=== PATIENT | female | born 1950 | race African-American/Black ===

== ENCOUNTER → 2016-11-01 | Day surgery (SDC) | payer OTHER ==
[~2016-11-01] MED LIST: ALBUTEROL17 GM INH; ANASTROZOLE1 GM MC; ANASTROZOLE1 MG PO; ARIMIDEX1 MG PO; ATENOLOL50 MG PO; ATORVASTATIN CA10 MG PO; AUGMENTIN875 M1 PO; BENADRYL25 M1 PO; DIFLUCAN100 MG PO; DILTIAZEM 24HR120 M1 PO; DILTIAZEM 24HR120 MG; EC-NAPROSYN500 MG PO; FLEXERIL10 MG PO; HCTZ; LIPITOR; LIPITOR PO; LISINOPRIL-HCTZ1 T15 PO; LISINOPRIL-HCTZ1 T18 PO; METFORMIN HCL1000 M1 PO; METFORMIN PO; NORVASC; OMEPRAZOLE20 M1 PO; PEPCID AC20 M2 PO; PERCOCET 5-3251 TAB PO; PREDNISONE1 MG PO; PRILOSEC20 MG PO; PRINIVIL10 MG PO; ROBITUSSIN A-C S5 ML PO; ROBITUSSIN A-C10 ML PO; TENORMIN50 MG PO; TOPROL XL 50 MG50 M1 PO; TOPROL XL 50 MG50 MG PO; ZESTORETIC 20-1 EAC2 PO; ZITHROMAX PO; ZITHROMAX1 G/PKT PO; [UNRECOGNIZED DRUG - REMARK]
--- NOTE | ~2016-11-01 | OR ---
Unit #: [id number] #: [id number] Patient: HUSSAIN QUINTANA [id number] [address] [address] [id number] O MR#: [id number] NAME: HUSSAIN QUINTANA. ROOM: Date of Procedure: 11/01/2016 Admission Date: 11/01/2016 Surgeon: Fuad Valero M.D. : 1950 Attending Physician: Fuad Valero M.D. Primary Care Physician: Tomasa Maxwell A.P.R.N. OPERATIVE REPORT PROCEDURE PERFORMED Colonoscopy with snare polypectomy. INDICATIONS FOR PROCEDURE A 66-year-old female, average risk for colorectal cancer. MEDICATIONS Monitored anesthesia. POSTOPERATIVE FINDINGS 1. Polyp, 5 mm, sigmoid colon snared and sent for histopathology. 2. Rest of the colon exam to cecum was normal. 3. Prep was good. 4. Internal hemorrhoids. PLAN Follow up on the pathology report. Repeat colonoscopy in 5 years. DESCRIPTION OF PROCEDURE The patient was explained of the procedure, risks, and benefits along with risks and benefits of anesthesia. She was brought to the endoscopy room. Propofol anesthesia was given. Rectal exam was done, which was normal. Colonoscope was lubricated, passed up the rectum, advanced under direct vision all the way to the cecum. Cecum was identified by ileocecal valve and appendiceal orifice. Polyp seen in sigmoid colon was snared and sent for histopathology. Rest of the exam was normal. I retroflexed in the rectum, internal hemorrhoids noted. Gently, the scope was pulled out. She tolerated the procedure well. No major complications were seen. Dictated by... Zara Nobles/nurys TD: 11/01/2016 15:35 JOB #: [id number] CC: Tomasa Maxwell A.P.R.N. Unit #: [id number] #: [id number] Patient: HUSSAIN QUINTANA OPERATIVE REPORT Page 1 of 1 X Fuad Valero MD PROCEDURE OPERATIVE NOTE
== END | disposition home or self-care (01) ==
LOC: COPS 09:17
DX: Z12.11 Encounter for screening for malignant neoplasm of colon (principal); K63.5 Polyp of colon; K64.8 Other hemorrhoids; I10 Essential (primary) hypertension; E11.9 Type 2 diabetes mellitus without complications; K21.9 Gastro-esophageal reflux disease without esophagitis; M19.90 Unspecified osteoarthritis, unspecified site; F17.210 Nicotine dependence, cigarettes, uncomplicated; Z85.3 Personal history of malignant neoplasm of breast; Z79.899 Other long term (current) drug therapy; Z98.51 Tubal ligation status
CPT/HCPCS: 82947; 88305; J2250